=== PATIENT | female | born 1960 | race African-American/Black ===

== ENCOUNTER 2020-01-05 01:27 | Emergency (ER) | payer OTHER ==
[~2020-01-05] VITALS: Ht 162.6 cm; Wt 70.3 kg
[2020-01-05 01:40] VITALS: BP 195/103
--- NOTE | 2020-01-05 01:40 | NUR ---
ED Nurse Note: Patient walked in to ED from home c/o nausea vomiting started last night at 2200. Per pt, she started feeling nauseous and throwing up after receiving dialysis. Dialysis days MWF, last dialysis was yesterday. Dialysis access on her right upper chest. BP at triage 195/103.
[2020-01-05] MEDS ORDERED: RENA-VITE TABL0.8 M1 PO (01:42)
[2020-01-05] MEDS ORDERED: FAMOTIDINE20 MG ORAL (01:42)
[2020-01-05] MEDS ORDERED: NIFEDIPINE ER90 M3 ORAL (01:42)
[2020-01-05] MEDS ORDERED: CATAPRES0.3 MG ORAL (01:42)
[2020-01-05] MEDS ORDERED: ASPIRIN81 MG ORAL (01:42)
[2020-01-05] MEDS ORDERED: METOPROLOL SUCC50 MG ORAL (01:42)
[2020-01-05] MEDS ORDERED: BENAZEPRIL HCL40 MG ORAL (01:42)
--- NOTE | 2020-01-05 01:45 | NUR ---
ED Nurse Note: pt aaox4
--- NOTE | 2020-01-05 02:15 | Emergency Room Report ---
History of Present Illness General Chief Complaint: Vomiting Source: Patient Present Illness HPI Disclaimer: Please note that this report is being documented using DRAGON technology. This can lead to erroneous entry secondary to incorrect interpretation by the dictating instrument. HPI: 59-year-old female with history of ESRD on hemodialysis MWF presents for evaluation of vomiting. Symptoms began after she finished her dialysis early this morning. She reports persistent emesis without abdominal pain. Unable to hold down food or medication throughout the day. She denies any chest pain, shortness of breath, GERD-like symptoms, abdominal pain, abdominal distention. She is anuric. Denies recent fever, chills, cough, shortness of breath, URI symptoms. No known sick contacts. No recent travel. PMH: ESRD, hypertension PSH: Dialysis access catheter Allergies: Denies Social Hx: Denies smoking or alcohol abuse COVID-19 risk:Contact w/high r: No COVID-19 risk:Travel to affect: No Has patient experienced pendleton: No Allergies: Coded Allergies: No Known Allergies (Unverified , 01/05/20) Patient History Last Menstrual Period: n/a Nursing Documentation-PMH Past Medical History: No History, Except For Hx Hypertension: Yes Hx Dialysis: Yes - M,W,F Review of Systems All Other Systems: negative except mentioned in HPI Physical Exam Vital Signs Date Time Temp Pulse Resp B/P (MAP) Pulse Ox O2 Delivery O2 Flow Rate FiO2 01/05/20 01:33 97.7 83 18 195/103 (133) 99 01/05/20 01:40 Room Air General: Awake and alert, no acute distress, hypertensive HEENT: NC/AT. EOMI. Neck: Supple, trachea midline Chest Wall: No tenderness, no deformity. Dialysis catheter in right upper chest. Cardiovascular: RRR. S1 and S2 normal. No murmur appreciated Resp: Normal work of breathing. No cough, wheezing or crackles appreciated Abdomen: Abdomen is soft, nondistended. Nontender. No masses, no rebound. Obese abdomen. Skin: Intact. No abrasions, laceration or rash over the exposed skin MSK: Normal tone and bulk. Moving all extremities. No obvious deformity. Neuro: Awake and alert. Mentating appropriately. Medical Decision Making Diagnostic Impression: Primary Impression: Vomiting ER Course 59-year-old female with a history of ESRD on hemodialysis presents for evaluation of vomiting, lightheadedness and headache. Differential includes was not limited to dialysis side effect, disequilibrium syndrome, gastritis, gastroenteritis, cholecystitis, pancreatitis, bowel obstruction, fluid shifts, electrolyte abnormalities. Will obtain broad labs, give antiemetics and treat hypertension. Laboratory Tests Test 01/05/20 01:51 White Blood Count 3.8 K/UL (4.8-10.8) L Red Blood Count 3.42 M/UL (4.20-5.40) L Hemoglobin 11.2 G/DL (12.0-16.0) L Hematocrit 32.6 % (37.0-47.0) L Mean Corpuscular Volume 95 FL (80-99) Mean Corpuscular Hemoglobin 32.7 PG (27.0-31.0) H Mean Corpuscular Hemoglobin Concent 34.4 G/DL (32.0-36.0) Red Cell Distribution Width 14.9 % (11.6-14.8) H Platelet Count 184 K/UL (150-450) Mean Platelet Volume 6.8 FL (6.5-10.1) Neutrophils (%) (Auto) 65.5 % (45.0-75.0) Lymphocytes (%) (Auto) 24.4 % (20.0-45.0) Monocytes (%) (Auto) 6.1 % (1.0-10.0) Eosinophils (%) (Auto) 1.9 % (0.0-3.0) Basophils (%) (Auto) 2.0 % (0.0-2.0) Sodium Level 134 MMOL/L (136-145) L Potassium Level 4.3 MMOL/L (3.5-5.1) Chloride Level 95 MMOL/L (98-107) L Carbon Dioxide Level 26 MMOL/L (21-32) Anion Gap 13 mmol/L (5-15) Blood Urea Nitrogen 32 mg/dL (7-18) H Creatinine 7.7 MG/DL (0.55-1.30) H Estimated Glomerular Filtration Rate 5.3 mL/min (>60) Glucose Level 115 MG/DL (74-106) H Calcium Level 9.3 MG/DL (8.5-10.1) Total Bilirubin 0.6 MG/DL (0.2-1.0) Aspartate Amino Transferase (AST) 59 U/L (15-37) H Alanine Aminotransferase (ALT) 37 U/L (12-78) Alkaline Phosphatase 87 U/L (46-116) Troponin I 0.001 ng/mL (0.000-0.056) Total Protein 9.5 G/DL (6.4-8.2) H Albumin 3.9 G/DL (3.4-5.0) Globulin 5.6 g/dL Albumin/Globulin Ratio 0.7 (1.0-2.7) L Lipase 267 U/L (73-393) EKG Diagnostic Results EKG Time: 02:17 Rate: normal Rhythm: NSR ST Segments: no acute changes Other Impression Sinus rhythm, normal axis, normal intervals, no ST segment changes, no peaked T waves Rhythm Strip Diag. Results Rhythm Strip Time: :17 EP Interpretation: yes Rate: 70s Rhythm: NSR, no PVC's, no ectopy Chest X-Ray Diagnostic Results Chest X-Ray Diagnostic Results : Chest X-Ray Ordered: Yes # of Views/Limited/Complete: 1 View Indication: Other Interpretation: no consolidation - Abdominal pain, no effusion, no pneumothorax, other - Dialysis catheter in place Impression: No acute disease Electronically Signed by: Electronically signed by Dr. Michael Huitron Other X-Ray Diagnostic Results Other X-Ray Diagnostic Results : X-Ray ordered: Abdomen # of Views/Limited Vs Complete: 1 View Indication: Other - Vomiting EP Interpretation: Yes Interpretation: nonspecific bowel gas, no sbo Impression: No acute disease Electronically Signed by: Electronically signed by Dr. Michael Huitron Reevaluation Time: 03:39 Last Vital Signs Date Time Temp Pulse Resp B/P (MAP) Pulse Ox O2 Delivery O2 Flow Rate FiO2 01/05/20 01:40 97.7 83 18 195/103 99 Room Air Reevaluation Impression Labs returned within normal limits. No significant electrolyte abnormalities. Chest x-ray and abdominal x-ray largely unremarkable. Patient symptoms have been controlled. She is tolerating oral intake without recurrence of nausea or vomiting. Will be discharged with symptomatic care. Follow-up with her PMD and patient information coordinator. Discussed isolation procedure per CDC protocols given the COVID-19 outbreak and her multiple risk factors. She understands and agrees with this treatment plan will be discharged home. Disposition: HOME, SELF-CARE Condition: Improved Scripts Ondansetron Odt* (ZOFRAN ODT*) 4 Mg Tab.rapdis 4 MG BC EVERY 6 HOURS PRN for Nausea & Vomiting, #20 TAB 0 Refills Prov: Michael Huitron MD 01/05/20 Michael Huitron MD Jan 05, 2020 02:15
[2020-01-05 02:18] LABS: EOSINOPHILS % (AUTO) 1.9 % (0.0-3.0); HEMATOCRIT 32.6 % (37.0-47.0); HEMOGLOBIN 11.2 G/DL (12.0-16.0); LYMPHOCYTES % (AUTO) 24.4 % (20.0-45.0); MEAN CORPUSCULAR VOLUME 95 FL (80-99); MONOCYTES % (AUTO) 6.1 % (1.0-10.0); NEUTROPHILS % (AUTO) 65.5 % (45.0-75.0); PLATELET COUNT 184 K/UL (150-450); RED BLOOD COUNT 3.42 M/UL (4.20-5.40); RED CELL DISTRIBUTION WIDTH 14.9 % (11.6-14.8); WHITE BLOOD COUNT 3.8 K/UL (4.8-10.8)
[2020-01-05 02:29] LABS: ANION GAP 13 mmol/L (5-15); BLOOD UREA NITROGEN 32 mg/dL (7-18); CALCIUM 9.3 MG/DL (8.5-10.1); CARBON DIOXIDE 26 MMOL/L (21-32); CHLORIDE 95 MMOL/L (98-107); CREATININE 7.7 MG/DL (0.55-1.30); POTASSIUM 4.3 MMOL/L (3.5-5.1); SODIUM 134 MMOL/L (136-145)
[2020-01-05 02:33] LABS: ALANINE AMINOTRANSFERASE 37 U/L (12-78); ALBUMIN 3.9 G/DL (3.4-5.0); ALBUMIN/GLOBULIN RATIO 0.7 (1.0-2.7); ALKALINE PHOSPHATASE 87 U/L (46-116); ASPARTATE AMINO TRANSFERASE 59 U/L (15-37); BILIRUBIN,TOTAL 0.6 MG/DL (0.2-1.0)
[2020-01-05] MEDS ORDERED: ONDANSETRON ODT4 MG BC (02:55)
--- NOTE | 2020-01-05 03:00 | NUR ---
ED Nurse Note: xr at bedside
[2020-01-05] MEDS ORDERED: Benazepril 10mg tab ONE (03:32)
[2020-01-05 03:45] VITALS: BP 156/84
--- NOTE | 2020-01-05 03:45 | NUR ---
Note marcelina in EDM - 01/05/20 at 0400 by [email or web address] ED Nurse Note: xr at bedside
--- NOTE | 2020-01-05 03:45 | NUR ---
ER DISCHARGE NOTE: Patient is cleared to be discharged per ERMD, pt is aox4, on room air, with stable vital signs. pt was given dc and prescription instructions, pt was able to verbalize understanding, pt id band and iv site removed without complications. pt is able to ambulate with steady gait. pt took all belongings, accompanied by family
--- NOTE | 2020-01-05 11:47 | Diagnostic Imaging Report ---
Indication: Dyspnea Comparison: None A single view chest radiograph was obtained. Findings: Cardiomediastinal appearance is within normal limits for age. There is a right permacath in good position. The lungs are clear. Pulmonary vascularity is appropriate. The diaphragmatic contour is smooth and costophrenic angles are sharp. No pleural effusions are identified. The bones are unremarkable. Impression: No acute findings
--- NOTE | 2020-01-05 11:47 | Diagnostic Imaging Report ---
Indication: Abdominal pain Comparison: None Single view of the abdomen obtained Findings: Bowel gas pattern is nonspecific. No mass, ectopic calcifications, or abnormal gas collections are identified. The bones are unremarkable. Impression: No acute findings
== END 2020-01-05 03:45 | disposition home or self-care (01) ==
LOC: EMR 02:38
DX: R11.10 Vomiting, unspecified (principal); I12.0 Hypertensive chronic kidney disease with stage 5 chronic kidney disease or end stage renal disease; N18.6 End stage renal disease; Z99.2 Dependence on renal dialysis; R10.9 Unspecified abdominal pain; R06.00 Dyspnea, unspecified
CPT/HCPCS: 36415; 71045; 74018; 80053; 83690; 84484; 85025; 93005; 96374; 96375; J0360; J2405; Z7502; 99284

== ENCOUNTER 2020-01-06 00:49 | Emergency (ER) | payer OTHER ==
[~2020-01-06] VITALS: Ht 162.6 cm; Wt 70.3 kg
[~2020-01-06 00:49] MED LIST: ASPIRIN81 MG ORAL; BENAZEPRIL HCL40 MG ORAL; CATAPRES0.3 MG ORAL; FAMOTIDINE20 MG ORAL; METOPROLOL SUCC50 MG ORAL; NIFEDIPINE ER90 M3 ORAL; ONDANSETRON ODT4 MG BC; RENA-VITE TABL0.8 M1 PO
--- NOTE | 2020-01-06 01:07 | Emergency Room Report ---
History of Present Illness General Chief Complaint: Dizziness Source: Patient Present Illness HPI Patient returns after being seen yesterday. Her blood pressure is out of control at this time. She has had 2 to 3 days of headache. The pain is occipital and radiates to the left side of her head. Was gradual in onset but is severe at this time with throbbing. She also feels unsteady on her feet but denies any unilateral weakness at this time. She has been taking her blood pressure medication. She had dialysis on Saturday. She does not produce urine at this time. She denies any fevers or chills. She was seen for vomiting yesterday and given medication. She still feels nauseated at this time. The pain in her head is rated 8/10, throbbing and constant. She has had similar headaches like this in the past but this is more severe. No sore throat, chest pain, palpitations, diarrhea, abdominal pain, shortness of breath, joint pain, rashes, depression, anxiety, visual changes, dizziness. Allergies: Coded Allergies: No Known Allergies (Unverified , 01/05/20) COVID-19 Screening Contact w/high risk pt: No Recent Travel to affected area: No Experienced COVID-19 symptoms?: No Patient History Past Medical History: see triage record Past Surgical History: other - Fistula Last Menstrual Period: n/a Nursing Documentation-[facility] Past Medical History: No History, Except For Hx Hypertension: Yes Hx Dialysis: Yes - M,W,F Physical Exam Vital Signs Date Time Temp Pulse Resp B/P (MAP) Pulse Ox O2 Delivery O2 Flow Rate FiO2 01/06/20 00:52 97.5 76 18 215/107 (143) 96 Room Air Sp02 EP Interpretation: reviewed, normal General Appearance: no apparent distress, Chronically Ill Head: normocephalic, atraumatic Eyes: bilateral eye other - Keeping eyes closed ENT: moist mucus membranes Neck: full range of motion, supple Respiratory: lungs clear, normal breath sounds Cardiovascular #1: regular rate, rhythm, no edema, no JVD Cardiovascular #2: 2+ radial (L) - Fistula with thrill Gastrointestinal: non tender, decreased bowel sounds, overweight Genitourinary: no CVA tenderness Musculoskeletal: back normal, no calf tenderness Neurologic: motor strength/tone normal, 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 Differential includes malignant hypertension, hypertensive urgency, brain bleed, electrolyte imbalance amongst others. Evaluation with EKG, chest x-ray, CT of the head and labs. Patient treated with Zofran, morphine and hydralazine. EKG no injury. CXR no obvious CHF - vascath L. CRF. Normal WBC. Still hypertensive and tachycardic. Labetalol ordered. CT no bleed or mass. Call to Dr. Paige for transfer ALS. Patient improved with decreasing headache. Patient stable for ALS transfer. Laboratory Tests Test 01/06/20 01:14 White Blood Count 4.4 K/UL (4.8-10.8) L Red Blood Count 3.15 M/UL (4.20-5.40) L Hemoglobin 10.8 G/DL (12.0-16.0) L Hematocrit 29.9 % (37.0-47.0) L Mean Corpuscular Volume 95 FL (80-99) Mean Corpuscular Hemoglobin 34.2 PG (27.0-31.0) H Mean Corpuscular Hemoglobin Concent 36.0 G/DL (32.0-36.0) Red Cell Distribution Width 15.1 % (11.6-14.8) H Platelet Count 161 K/UL (150-450) Mean Platelet Volume 6.8 FL (6.5-10.1) Neutrophils (%) (Auto) 60.2 % (45.0-75.0) Lymphocytes (%) (Auto) 28.4 % (20.0-45.0) Monocytes (%) (Auto) 7.6 % (1.0-10.0) Eosinophils (%) (Auto) 2.4 % (0.0-3.0) Basophils (%) (Auto) 1.4 % (0.0-2.0) Prothrombin Time 10.9 SEC (9.30-11.50) Prothrombin Time INR 1.0 (0.9-1.1) Activated Partial Thromboplast Time 27 SEC (23-33) Sodium Level 134 MMOL/L (136-145) L Potassium Level 4.6 MMOL/L (3.5-5.1) Chloride Level 97 MMOL/L (98-107) L Carbon Dioxide Level 24 MMOL/L (21-32) Anion Gap 13 mmol/L (5-15) Blood Urea Nitrogen 45 mg/dL (7-18) H Creatinine 10.0 MG/DL (0.55-1.30) H Estimated Glomerular Filtration Rate 4.7 mL/min (>60) Glucose Level 103 MG/DL (74-106) Calcium Level 8.9 MG/DL (8.5-10.1) Total Bilirubin 0.6 MG/DL (0.2-1.0) Aspartate Amino Transferase (AST) 43 U/L (15-37) H Alanine Aminotransferase (ALT) 34 U/L (12-78) Alkaline Phosphatase 83 U/L (46-116) Total Creatine Kinase 48 U/L (26-308) Troponin I 0.000 ng/mL (0.000-0.056) Pro-B-Type Natriuretic Peptide 24304 pg/mL (0-125) H Total Protein 9.2 G/DL (6.4-8.2) H Albumin 3.9 G/DL (3.4-5.0) Globulin 5.3 g/dL Albumin/Globulin Ratio 0.7 (1.0-2.7) L EKG Diagnostic Results Rate: normal Rhythm: NSR ST Segments: no acute changes - Left atrial enlargement Rhythm Strip Diag. Results EP Interpretation: yes Rhythm: NSR, no PVC's, no ectopy Chest X-Ray Diagnostic Results Chest X-Ray Diagnostic Results : Chest X-Ray Ordered: Yes # of Views/Limited/Complete: 1 View Indication: Other EP Interpretation: Yes Interpretation: no consolidation, no effusion, no pneumothorax, other - vas cath Impression: Other Electronically Signed by: Electronically signed by Joel Laird MD CT/MRI/US Diagnostic Results CT/MRI/US Diagnostic Results : Imaging Test Ordered: head Impression no mass or bleed Last Vital Signs Date Time Temp Pulse Resp B/P (MAP) Pulse Ox O2 Delivery O2 Flow Rate FiO2 01/06/20 08:14 98.0 88 22 175/77 100 Room Air Status: improved Disposition: XFER SHT-TRM HOSP Condition: Serious Referrals: [facility],REFERRING (PCP) Joel Laird MD Jan 06, 2020 01:07
[2020-01-06] MEDS ORDERED: Morphine Sulfate 2mg/ml Inj(IV/IM USE ONLY) IVP ONE (01:15)
--- NOTE | 2020-01-06 01:15 | NUR ---
ED Nurse Note: pt presents to ED c/o dizziness and HTN, she was seen here for the same symptoms yesterday that have not improved today. pt goes to dialysis M,W,F and has a shunt to her R chest. pt is also reporting a posterior DHILLON that she rates an 8/10 and is worse than yesterday. pt does not make urine anymore, is also reporting some imbalance and weakness
[2020-01-06 01:28] VITALS: BP 200/101
[2020-01-06 01:33] LABS: BASOPHILS % (AUTO) 1.4 % (0.0-2.0); EOSINOPHILS % (AUTO) 2.4 % (0.0-3.0); HEMATOCRIT 29.9 % (37.0-47.0); HEMOGLOBIN 10.8 G/DL (12.0-16.0); LYMPHOCYTES % (AUTO) 28.4 % (20.0-45.0); MEAN CORPUSCULAR VOLUME 95 FL (80-99); MONOCYTES % (AUTO) 7.6 % (1.0-10.0); NEUTROPHILS % (AUTO) 60.2 % (45.0-75.0); PLATELET COUNT 161 K/UL (150-450); RED BLOOD COUNT 3.15 M/UL (4.20-5.40); RED CELL DISTRIBUTION WIDTH 15.1 % (11.6-14.8); WHITE BLOOD COUNT 4.4 K/UL (4.8-10.8)
[2020-01-06 01:37] VITALS: BP 187/90
[2020-01-06 01:43] LABS: ANION GAP 13 mmol/L (5-15); BLOOD UREA NITROGEN 45 mg/dL (7-18); CALCIUM 8.9 MG/DL (8.5-10.1); CARBON DIOXIDE 24 MMOL/L (21-32); CHLORIDE 97 MMOL/L (98-107); POTASSIUM 4.6 MMOL/L (3.5-5.1); SODIUM 134 MMOL/L (136-145)
[2020-01-06 01:53] LABS: ALANINE AMINOTRANSFERASE 34 U/L (12-78); ALBUMIN 3.9 G/DL (3.4-5.0); ALBUMIN/GLOBULIN RATIO 0.7 (1.0-2.7); ALKALINE PHOSPHATASE 83 U/L (46-116); ASPARTATE AMINO TRANSFERASE 43 U/L (15-37); BILIRUBIN,TOTAL 0.6 MG/DL (0.2-1.0); CREATINE KINASE 48 U/L (26-308)
--- NOTE | 2020-01-06 02:38 | Diagnostic Imaging Report ---
Indication: Headache Technique: Contiguous 5 mm thick transaxial imaging of the head obtained in a Siemens Sensation [address] scanner. Soft tissue and bone windows generated. Automatic Exposure Control was utilized. Total Dose length Product (DLP): 1072.2mGycm CT Dose Index Volume (CTDIvol): 53.4 mGy Comparison: none Findings: There is mild prominence of the ventricles, basal cisterns, and cerebral sulci consistent with atrophy. Mild, nonspecific, white matter hypoattenuation is noted throughout the brain consistent with chronic small vessel disease. There is no midline shift, edema, acute hemorrhage, mass effect, or abnormal extra-axial fluid collections. Bones are unremarkable. There is mucosal thickening within the paranasal sinuses. Impression: No acute intracranial bleed, mass effect or edema. Mild atrophy of the brain. Nonspecific white matter hypoattenuation probably due to chronic small vessel disease. Sinusitis [facility] has communicated the preliminary results to the Emergency Department. Their findings are largely concordant with this report. The CT scanner at [facility] is accredited by the [employer] and the scans are performed using dose optimization techniques as appropriate to a performed exam including Automatic Exposure control.
--- NOTE | 2020-01-06 03:00 | NUR ---
ED Nurse Note: pt remains hypertensive, but notes improvement of DHILLON pain, ERMD notified about HTN
[2020-01-06 03:07] VITALS: BP 185/88
[2020-01-06] MEDS ORDERED: Labetalol 5mg/ml 20ml vial IV ONE (04:00)
[2020-01-06 04:09] VITALS: BP 174/85
[2020-01-06 04:59] VITALS: BP 162/77
--- NOTE | 2020-01-06 05:00 | NUR ---
ED Nurse Note: pt appears to be asleep in bed with eyes closed, VSS, no acute distress is noted at this time. multiple warm blankets and pillows provided per request of pt for comfort. will continue to monitor
--- NOTE | 2020-01-06 05:30 | NUR ---
ED Nurse Note: pt care endorsed to TREVON Avitia at [facility]. awaiting transportation. pt appears to be asleep in bed with eyes closed, no acute distress is noted at this time. safety precautions are in place, will continue to monitor pt
--- NOTE | 2020-01-06 08:11 | NUR ---
ED Nurse Note: pt. transported by [facility] with no s/s of acute distress noted. pt. left with all of her belongings.
[2020-01-06 08:14] VITALS: BP 175/77
--- NOTE | 2020-01-06 11:11 | Diagnostic Imaging Report ---
Indication: Dyspnea Comparison: 01/05/2020 A single view chest radiograph was obtained. Findings: Right permacath is noted in good position. Cardiomediastinal appearance is within normal limits for age. The lungs are clear. Pulmonary vascularity is appropriate. The diaphragmatic contour is smooth and costophrenic angles are sharp. No pleural effusions are identified. The bones are unremarkable. Impression: No acute findings
== END 2020-01-06 08:14 | disposition short-term general hospital (02) ==
LOC: EMR 01:00
DX: I16.0 Hypertensive urgency (principal); I12.0 Hypertensive chronic kidney disease with stage 5 chronic kidney disease or end stage renal disease; N18.6 End stage renal disease; Z99.2 Dependence on renal dialysis; R11.0 Nausea; E66.3 Overweight; Z68.26 Body mass index [BMI] 26.0-26.9, adult
CPT/HCPCS: 36415; 70450; 71045; 80053; 82550; 83880; 84484; 85025; 85610; 85730; 93005; 96374; 96375; J0360; J2270; J2405; Z7502; 99284